=== PATIENT | male | born 1990 | race Asian ===

== ENCOUNTER 2023-07-12 18:56 | Inpatient (IN) | payer MEDICAID ==
[~2023-07-12] VITALS: Ht 167.6 cm; Wt 70.4 kg
[2023-07-12] MEDS ORDERED: CefTRIAXone 2gm/D5W 50ml BAG 50 ML IV ONE (20:05)
[2023-07-12] MEDS ORDERED: vancomycin/NS 1 GM ADD-VANTAGE 250 ML IV ONE ×2 (20:05→23:00)
[2023-07-12] MEDS ORDERED: TETanus/Pertussis (Acell)/Diphther VAC/PF (Tdap-Adult) 0.5ml syringe IMVAC ONE (20:05)
[2023-07-12] MEDS ORDERED: normal saline 1000ML IV soln IV ONE (20:05)
[2023-07-12 20:45] LABS: BASOPHILS % (AUTO) 0.3 % (0-1); EOSINOPHILS # (AUTO) 0.1 X10'3 (0-0.9); EOSINOPHILS % (AUTO) 0.8 % (0-6); HEMATOCRIT 37.9 % (42.0-52.0); HEMOGLOBIN 12.6 g/dl (14.0-17.9); LYMPHOCYTES # (AUTO) 1.4 X10'3 (1.1-4.8); LYMPHOCYTES % (AUTO) 14.3 % (21-51); MEAN CORPUSCULAR HEMOGLOBIN 29.3 PG (27.0-31.0); MEAN CORPUSCULAR HGB CONC 33.3 g/dL (33.0-36.5); MEAN CORPUSCULAR VOLUME 88.1 FL (78-98); MEAN PLATELET VOLUME 7.9 FL (7.4-10.4); MONOCYTES # (AUTO) 0.8 X10'3 (0-0.9); MONOCYTES % (AUTO) 8.6 % (2-12); NEUTROPHILS # (AUTO) 7.2 X10'3 (1.8-7.7); PLATELET COUNT 266 X10'3 (140-440); RED BLOOD COUNT 4.31 X10'6 (4.70-6.10); RED CELL DISTRIBUTION WIDTH 13.8 % (11.5-14.5); WHITE BLOOD COUNT 9.5 X10'3 (4.5-11.0)
[2023-07-12 21:00] LABS: ALANINE AMINOTRANSFERASE 28 U/L (12-78); ALBUMIN 3.1 G/DL (3.4-5.0); ALBUMIN/GLOBULIN RATIO 0.7 (1.1-1.5); ALKALINE PHOSPHATASE 91 IU/L (46-116); ANION GAP 7 (8-16); ASPARTATE AMINO TRANSFERASE 16 U/L (10-37); BILIRUBIN,TOTAL 0.2 MG/DL (0.1-1.0); BLOOD UREA NITROGEN 12 MG/DL (7-18); BUN/CREATININE RATIO 12.4 (10.0-20.0); CALCIUM 9.1 MG/DL (8.5-10.1); CHLORIDE 102 MMOL/L (99-107); CREATININE 0.97 MG/DL (0.60-1.10); GLUCOSE 132 MG/DL (70-104); POTASSIUM 3.4 MMOL/L (3.5-5.1); SODIUM 138 MMOL/L (135-145); TOTAL CARBON DIOXIDE 29.1 MMOL/L (24-32); TOTAL PROTEIN 7.6 G/DL (6.4-8.2); eCRCL 100 ML/MIN; eGFR 90 ML/MIN
[2023-07-12] MEDS ORDERED: temazepam 15mg capsule PO PRN (21:00)
[2023-07-12] MEDS ORDERED: acetaminophen 325mg tablet PO PRN ×2 (22:25)
[2023-07-12] MEDS ORDERED: magnesium 4gm in 100ml NS 100 ML IV PRN (22:25)
[2023-07-12] MEDS: normal saline 1000ml 1,000 ML IV SCH (22:25)
[2023-07-12] MEDS ORDERED: potassium Cl 40MEQ/1/2NS 520ml 520 ML IV PRN (22:25)
[2023-07-12] MEDS ORDERED: ondansetron/PF 4mg/2ml inj IV PRN (22:25)
[2023-07-12] MEDS ORDERED: potassium Cl 20 mEq SR tablet PO PRN ×2 (22:25)
[2023-07-12] MEDS ORDERED: magnesium Cl slow-release 64mg tablet PO PRN (22:25)
[2023-07-12] MEDS ORDERED: magnesium 2GM in 50ml NS 50 ML IV PRN (22:25)
[2023-07-12] MEDS ORDERED: HYDROcodone/acetaminophen 5mg/325mg tablet PO PRN (22:25)
[2023-07-12] MEDS ORDERED: morphine 2 MG/ML inj. syringe IV PRN (22:25)
[2023-07-12] MEDS ORDERED: fluconazole 150mg tablet PO ONE (22:30)
[2023-07-13] MEDS ORDERED: vancomycin/NS 1 GM ADD-VANTAGE 250 ML X 1 DOSE IV ONE (00:30)
[2023-07-13] MEDS: HYDROcodone/acetaminophen 10/325mg tab PO PRN ×3 (00:35→14:40)
[2023-07-13] MEDS ORDERED: heparin, porcine 5000 units/ml vial SQ SCH (08:00)
[2023-07-13 08:17] LABS: BASOPHILS % (AUTO) 0.2 % (0-1); EOSINOPHILS # (AUTO) 0.1 X10'3 (0-0.9); EOSINOPHILS % (AUTO) 1.1 % (0-6); HEMATOCRIT 34.9 % (42.0-52.0); HEMOGLOBIN 11.5 g/dl (14.0-17.9); LYMPHOCYTES # (AUTO) 1.2 X10'3 (1.1-4.8); MEAN CORPUSCULAR HEMOGLOBIN 29.4 PG (27.0-31.0); MEAN CORPUSCULAR VOLUME 89.1 FL (78-98); MEAN PLATELET VOLUME 7.8 FL (7.4-10.4); MONOCYTES # (AUTO) 0.7 X10'3 (0-0.9); MONOCYTES % (AUTO) 7.8 % (2-12); NEUTROPHILS # (AUTO) 6.6 X10'3 (1.8-7.7); NEUTROPHILS % (AUTO) 76.9 % (42-75); PLATELET COUNT 234 X10'3 (140-440); RED BLOOD COUNT 3.92 X10'6 (4.70-6.10); RED CELL DISTRIBUTION WIDTH 13.3 % (11.5-14.5); WHITE BLOOD COUNT 8.6 X10'3 (4.5-11.0)
[2023-07-13] MEDS: normal saline 1000ml 1,000 ML IV SCH ×3 (08:25→22:10)
[2023-07-13] MEDS: vancomycin/NS 1 GM ADD-VANTAGE 250 ML X 1 DOSE IV SCH ×2 (08:55→20:27)
[2023-07-13 09:12] LABS: ALANINE AMINOTRANSFERASE 47 U/L (12-78); ALBUMIN 2.4 G/DL (3.4-5.0); ALBUMIN/GLOBULIN RATIO 0.6 (1.1-1.5); ALKALINE PHOSPHATASE 77 IU/L (46-116); ANION GAP 6 (8-16); ASPARTATE AMINO TRANSFERASE 41 U/L (10-37); BILIRUBIN,TOTAL 0.2 MG/DL (0.1-1.0); BLOOD UREA NITROGEN 8 MG/DL (7-18); BUN/CREATININE RATIO 9.4 (10.0-20.0); CALCIUM 8.3 MG/DL (8.5-10.1); CHLORIDE 106 MMOL/L (99-107); CREATININE 0.85 MG/DL (0.60-1.10); GLUCOSE 98 MG/DL (70-104); POTASSIUM 3.9 MMOL/L (3.5-5.1); SODIUM 138 MMOL/L (135-145); TOTAL CARBON DIOXIDE 25.8 MMOL/L (24-32); TOTAL PROTEIN 6.2 G/DL (6.4-8.2); eCRCL 114 ML/MIN; eGFR > 90 ML/MIN
[2023-07-13] MEDS: morphine 2 MG/ML inj. syringe IV PRN (10:46)
[2023-07-13] MEDS: piperacillin/tazo 3.375gm/50ml 50 ML IV SCH ×2 (10:47→22:09)
[2023-07-13] MEDS ORDERED: LIDOcaine 1% (10mg/ml)w/preservative inj. 20ml MDV SQ ONE ×2 (14:25→14:55)
[2023-07-13 15:00] VITALS: BP 121/75; PULSE 80; RESP 14; TEMP 98.2; O2SAT 95
[2023-07-13] MEDS ORDERED: NO HOME MEDS (17:13)
[2023-07-13 19:20] VITALS: BP 127/78; PULSE 101; RESP 16; TEMP 102.8; O2SAT 97
[2023-07-13 21:00] VITALS: BP 113/75; PULSE 87; RESP 16; TEMP 99.7
[2023-07-13 23:00] VITALS: BP 115/70; PULSE 91; RESP 14; TEMP 97.8; O2SAT 97
[2023-07-14] MEDS: vancomycin/NS 1 GM ADD-VANTAGE 250 ML X 1 DOSE IV SCH ×4 (01:49→23:24)
[2023-07-14] MEDS: piperacillin/tazo 3.375gm/50ml 50 ML IV SCH ×3 (03:37→16:00)
[2023-07-14] MEDS: HYDROcodone/acetaminophen 10/325mg tab PO PRN ×4 (03:40→23:24)
[2023-07-14 06:00] VITALS: BP 109/62; PULSE 66; RESP 18; TEMP 98.2; O2SAT 96
[2023-07-14] MEDS ORDERED: VANCOMYCIN LEVEL IV ONE (07:30)
[2023-07-14 07:33] VITALS: RESP 16; O2SAT 97
[2023-07-14 07:55] LABS: BASOPHILS # (AUTO) 0.1 X10'3 (0-0.2); BASOPHILS % (AUTO) 0.8 % (0-1); EOSINOPHILS # (AUTO) 0.1 X10'3 (0-0.9); EOSINOPHILS % (AUTO) 1.6 % (0-6); HEMATOCRIT 35.9 % (42.0-52.0); HEMOGLOBIN 11.9 g/dl (14.0-17.9); LYMPHOCYTES # (AUTO) 1.4 X10'3 (1.1-4.8); LYMPHOCYTES % (AUTO) 21.6 % (21-51); MEAN CORPUSCULAR HEMOGLOBIN 29.3 PG (27.0-31.0); MEAN CORPUSCULAR VOLUME 88.7 FL (78-98); MEAN PLATELET VOLUME 7.9 FL (7.4-10.4); MONOCYTES # (AUTO) 0.7 X10'3 (0-0.9); MONOCYTES % (AUTO) 10.3 % (2-12); NEUTROPHILS # (AUTO) 4.3 X10'3 (1.8-7.7); NEUTROPHILS % (AUTO) 65.7 % (42-75); PLATELET COUNT 251 X10'3 (140-440); RED BLOOD COUNT 4.05 X10'6 (4.70-6.10); RED CELL DISTRIBUTION WIDTH 13.6 % (11.5-14.5); WHITE BLOOD COUNT 6.5 X10'3 (4.5-11.0)
[2023-07-14 08:04] LABS: ALANINE AMINOTRANSFERASE 60 U/L (12-78); ALBUMIN 2.3 G/DL (3.4-5.0); ALBUMIN/GLOBULIN RATIO 0.6 (1.1-1.5); ALKALINE PHOSPHATASE 79 IU/L (46-116); ANION GAP 3 (8-16); ASPARTATE AMINO TRANSFERASE 45 U/L (10-37); BILIRUBIN,TOTAL 0.3 MG/DL (0.1-1.0); BLOOD UREA NITROGEN 11 MG/DL (7-18); BUN/CREATININE RATIO 10.9 (10.0-20.0); CALCIUM 8.5 MG/DL (8.5-10.1); CHLORIDE 105 MMOL/L (99-107); CREATININE 1.01 MG/DL (0.60-1.10); GLUCOSE 123 MG/DL (70-104); POTASSIUM 3.7 MMOL/L (3.5-5.1); SODIUM 137 MMOL/L (135-145); TOTAL CARBON DIOXIDE 29.3 MMOL/L (24-32); TOTAL PROTEIN 6.3 G/DL (6.4-8.2); VANCOMYCIN,TROUGH 17.3 ug/mL (10.0-20.0); eCRCL 96 ML/MIN; eGFR 86 ML/MIN
[2023-07-14 10:00] VITALS: BP 113/66; PULSE 81; RESP 18; TEMP 98.4; O2SAT 95
[2023-07-14] MEDS: morphine 2 MG/ML inj. syringe IV PRN (11:49)
[2023-07-14] MEDS: normal saline 1000ml 1,000 ML IV SCH ×2 (14:25→15:22)
[2023-07-14 18:00] VITALS: BP 117/72; PULSE 82; RESP 16; TEMP 98.8; O2SAT 97
[2023-07-15 00:04] VITALS: BP 126/80; PULSE 78; RESP 18; TEMP 98.4; O2SAT 97
[2023-07-15] MEDS: piperacillin/tazo 3.375gm/50ml 50 ML IV SCH ×2 (00:55→08:17)
[2023-07-15 06:00] VITALS: BP 121/79; PULSE 62; RESP 16; TEMP 98; O2SAT 98
[2023-07-15 06:50] LABS: BASOPHILS % (AUTO) 0.5 % (0-1); EOSINOPHILS # (AUTO) 0.2 X10'3 (0-0.9); HEMATOCRIT 38.2 % (42.0-52.0); HEMOGLOBIN 12.5 g/dl (14.0-17.9); LYMPHOCYTES # (AUTO) 1.5 X10'3 (1.1-4.8); LYMPHOCYTES % (AUTO) 23.6 % (21-51); MEAN CORPUSCULAR HGB CONC 32.7 g/dL (33.0-36.5); MEAN CORPUSCULAR VOLUME 88.7 FL (78-98); MEAN PLATELET VOLUME 7.4 FL (7.4-10.4); MONOCYTES # (AUTO) 0.6 X10'3 (0-0.9); MONOCYTES % (AUTO) 10.3 % (2-12); NEUTROPHILS # (AUTO) 3.9 X10'3 (1.8-7.7); NEUTROPHILS % (AUTO) 62.6 % (42-75); PLATELET COUNT 288 X10'3 (140-440); RED BLOOD COUNT 4.31 X10'6 (4.70-6.10); RED CELL DISTRIBUTION WIDTH 13.5 % (11.5-14.5); WHITE BLOOD COUNT 6.2 X10'3 (4.5-11.0)
[2023-07-15 07:03] LABS: ALANINE AMINOTRANSFERASE 51 U/L (12-78); ALBUMIN 2.5 G/DL (3.4-5.0); ALBUMIN/GLOBULIN RATIO 0.6 (1.1-1.5); ALKALINE PHOSPHATASE 69 IU/L (46-116); ANION GAP 2 (8-16); ASPARTATE AMINO TRANSFERASE 26 U/L (10-37); BILIRUBIN,TOTAL 0.2 MG/DL (0.1-1.0); BLOOD UREA NITROGEN 14 MG/DL (7-18); CALCIUM 8.8 MG/DL (8.5-10.1); CHLORIDE 103 MMOL/L (99-107); CREATININE 1.17 MG/DL (0.60-1.10); GLUCOSE 95 MG/DL (70-104); POTASSIUM 4.3 MMOL/L (3.5-5.1); SODIUM 138 MMOL/L (135-145); TOTAL CARBON DIOXIDE 33.3 MMOL/L (24-32); TOTAL PROTEIN 6.7 G/DL (6.4-8.2); eCRCL 83 ML/MIN; eGFR 73 ML/MIN
[2023-07-15] MEDS: morphine 2 MG/ML inj. syringe IV PRN (09:24)
[2023-07-15 10:00] VITALS: BP 125/76; PULSE 81; RESP 16; TEMP 97.8; O2SAT 100
[2023-07-15] MEDS ORDERED: HYDR-3965 PO (11:33)
[2023-07-15] MEDS ORDERED: LEVO750T68 PO (12:13)
== END 2023-07-15 13:45 | disposition home or self-care (01) | DRG 316 ==
LOC: ER 18:57 → ED HOLD 22:30 → EDBEDREQSVC 07-13 09:21 → ORTHO 4S 07-13 11:47
PROVIDERS: ADMIT Internal Medicine; ATTEND Internal Medicine
PROC: 0JBJ0ZZ Excision of Right Hand Subcutaneous Tissue and Fascia, Open Approach (ICD-10-PCS; principal; 2023-07-13)
DX: M65.841 Other synovitis and tenosynovitis, right hand (principal); L02.511 Cutaneous abscess of right hand; L03.011 Cellulitis of right finger; Z72.0 Tobacco use
CPT/HCPCS: 36415; 73140; 80053; 80202; 83605; 84145; 85025; 87040; 87070; 87077; 87186; 90715; 96365; 99285; A6446; A6449; G0378; J0696; J1644; J2270; J2543; J3370; J7030

== ENCOUNTER 2023-10-21 18:48 | Emergency (ER) | payer MEDICAID ==
[~2023-10-21] VITALS: Ht 167.6 cm; Wt 79.0 kg
[~2023-10-21 18:48] MED LIST: NO HOME MEDS
[2023-10-21 19:56] LABS: BASOPHILS % (AUTO) 0.2 % (0-1); EOSINOPHILS # (AUTO) 0.1 X10'3 (0-0.9); EOSINOPHILS % (AUTO) 0.6 % (0-6); HEMOGLOBIN 13.3 g/dl (14.0-17.9); LYMPHOCYTES # (AUTO) 1.3 X10'3 (1.1-4.8); LYMPHOCYTES % (AUTO) 14.3 % (21-51); MEAN CORPUSCULAR HEMOGLOBIN 28.9 PG (27.0-31.0); MEAN CORPUSCULAR HGB CONC 33.1 g/dL (33.0-36.5); MEAN CORPUSCULAR VOLUME 87.3 FL (78-98); MEAN PLATELET VOLUME 8.3 FL (7.4-10.4); MONOCYTES # (AUTO) 0.9 X10'3 (0-0.9); MONOCYTES % (AUTO) 10.6 % (2-12); NEUTROPHILS # (AUTO) 6.6 X10'3 (1.8-7.7); NEUTROPHILS % (AUTO) 74.3 % (42-75); PLATELET COUNT 223 X10'3 (140-440); RED BLOOD COUNT 4.58 X10'6 (4.70-6.10); RED CELL DISTRIBUTION WIDTH 15.4 % (11.5-14.5); WHITE BLOOD COUNT 8.9 X10'3 (4.5-11.0)
[2023-10-21 20:05] LABS: ALBUMIN 4.6 G/DL (3.4-5.0); ANION GAP 13 (8-16); BLOOD UREA NITROGEN 25 MG/DL (7-18); BUN/CREATININE RATIO 22.5 (10.0-20.0); C-REACTIVE PROTEIN 1.66 MG/DL (0.0-0.5); CALCIUM 9.5 MG/DL (8.5-10.1); CHLORIDE 107 MMOL/L (99-107); CREATININE 1.11 MG/DL (0.60-1.10); GLUCOSE 88 MG/DL (70-104); POTASSIUM 3.9 MMOL/L (3.5-5.1); SODIUM 144 MMOL/L (135-145); eCRCL 87 ML/MIN; eGFR 77 ML/MIN
[2023-10-21] MEDS: levoFLOXACIN 250mg tablet PO ONE (20:30)
[2023-10-21] MEDS ORDERED: LEVO-65 PO (20:34)
[2023-10-21 20:39] VITALS: BP 128/72; PULSE 88; RESP 18; TEMP 98; O2SAT 98
== END 2023-10-21 20:41 | disposition home or self-care (01) ==
LOC: ER 18:49
DX: L03.113 Cellulitis of right upper limb (principal)
CPT/HCPCS: 36415; 73140; 80048; 85025; 86140; 99284

== ENCOUNTER 2024-08-10 23:54 | Emergency (ER) | payer MEDICAID ==
[~2024-08-10] VITALS: Ht 167.6 cm; Wt 71.3 kg
[2024-08-10 23:58] VITALS: TEMP 98.2
[2024-08-11 01:05] LABS: BASOPHILS # (AUTO) 0.1 X10'3 (0-0.2); BASOPHILS % (AUTO) 0.7 % (0-1); EOSINOPHILS # (AUTO) 0.1 X10'3 (0-0.9); HEMATOCRIT 39.5 % (42.0-52.0); HEMOGLOBIN 13.3 g/dl (14.0-17.9); LYMPHOCYTES # (AUTO) 1.2 X10'3 (1.1-4.8); LYMPHOCYTES % (AUTO) 15.6 % (21-51); MEAN CORPUSCULAR HEMOGLOBIN 29.5 PG (27.0-31.0); MEAN CORPUSCULAR HGB CONC 33.8 g/dL (33.0-36.5); MEAN CORPUSCULAR VOLUME 87.4 FL (78-98); MEAN PLATELET VOLUME 8.1 FL (7.4-10.4); MONOCYTES # (AUTO) 0.4 X10'3 (0-0.9); MONOCYTES % (AUTO) 5.3 % (2-12); NEUTROPHILS % (AUTO) 77.4 % (42-75); PLATELET COUNT 330 X10'3 (140-440); RED BLOOD COUNT 4.52 X10'6 (4.70-6.10); RED CELL DISTRIBUTION WIDTH 13.8 % (11.5-14.5); WHITE BLOOD COUNT 7.8 X10'3 (4.5-11.0)
[2024-08-11 01:14] LABS: ALBUMIN 3.6 G/DL (3.4-5.0); ANION GAP 7 (8-16); BILIRUBIN,TOTAL 0.3 MG/DL (0.1-1.0); BLOOD UREA NITROGEN 33 MG/DL (7-18); BUN/CREATININE RATIO 22.4 (10.0-20.0); CHLORIDE 104 MMOL/L (99-107); CREATININE 1.47 MG/DL (0.60-1.10); GLUCOSE 108 MG/DL (70-104); POTASSIUM 4.3 MMOL/L (3.5-5.1); SODIUM 138 MMOL/L (135-145); TOTAL CARBON DIOXIDE 27.2 MMOL/L (24-32); TOTAL PROTEIN 7.5 G/DL (6.4-8.2); eCRCL 65 ML/MIN; eGFR 56 ML/MIN
[2024-08-11 01:15] LABS: ALANINE AMINOTRANSFERASE 22 U/L (12-78); ALBUMIN/GLOBULIN RATIO 0.9 (1.1-1.5); ALKALINE PHOSPHATASE 67 IU/L (46-116); ASPARTATE AMINO TRANSFERASE 12 U/L (10-37)
[2024-08-11 01:23] LABS: PRO BRAIN NATRIURETIC PEPTIDE 60 PG/ML (0-125)
[2024-08-11] MEDS ORDERED: RABE20TA31 PO (03:46)
[2024-08-11 03:57] VITALS: BP 140/92; PULSE 88; RESP 18; O2SAT 95
== END 2024-08-11 03:54 | disposition home or self-care (01) ==
LOC: ER 23:55
DX: K21.9 Gastro-esophageal reflux disease without esophagitis (principal); R07.89 Other chest pain; F17.210 Nicotine dependence, cigarettes, uncomplicated; I25.10 Atherosclerotic heart disease of native coronary artery without angina pectoris
CPT/HCPCS: 36415; 71045; 80053; 83880; 84484; 85025; 93005; 99285

== ENCOUNTER 2024-10-08 09:23 | Emergency (ER) | payer MEDICAID ==
[~2024-10-08] VITALS: Ht 167.6 cm; Wt 74.0 kg
[~2024-10-08 09:23] MED LIST changes: +RABE20TA31 PO
[2024-10-08 09:40] VITALS: TEMP 97.9
[2024-10-08 10:38] LABS: BASOPHILS % (AUTO) 0.4 % (0-1); EOSINOPHILS % (AUTO) 0.5 % (0-6); HEMATOCRIT 42.5 % (42.0-52.0); LYMPHOCYTES # (AUTO) 1.1 X10'3 (1.1-4.8); LYMPHOCYTES % (AUTO) 23.7 % (21-51); MEAN CORPUSCULAR HEMOGLOBIN 28.9 PG (27.0-31.0); MEAN CORPUSCULAR HGB CONC 32.9 g/dL (33.0-36.5); MEAN PLATELET VOLUME 8.1 FL (7.4-10.4); MONOCYTES # (AUTO) 0.3 X10'3 (0-0.9); MONOCYTES % (AUTO) 7.1 % (2-12); NEUTROPHILS # (AUTO) 3.2 X10'3 (1.8-7.7); NEUTROPHILS % (AUTO) 68.3 % (42-75); PLATELET COUNT 238 X10'3 (140-440); RED BLOOD COUNT 4.83 X10'6 (4.70-6.10); RED CELL DISTRIBUTION WIDTH 14.7 % (11.5-14.5); WHITE BLOOD COUNT 4.6 X10'3 (4.5-11.0)
[2024-10-08 10:57] LABS: ALANINE AMINOTRANSFERASE 19 U/L (12-78); ALKALINE PHOSPHATASE 79 IU/L (46-116); ANION GAP 4 (8-16); ASPARTATE AMINO TRANSFERASE 17 U/L (10-37); BILIRUBIN,TOTAL 0.3 MG/DL (0.1-1.0); BLOOD UREA NITROGEN 15 MG/DL (7-18); BUN/CREATININE RATIO 13.6 (10.0-20.0); CALCIUM 9.1 MG/DL (8.5-10.1); CHLORIDE 108 MMOL/L (99-107); GLUCOSE 100 MG/DL (70-104); LIPASE 32 U/L (16-77); POTASSIUM 3.9 MMOL/L (3.5-5.1); SODIUM 144 MMOL/L (135-145); TOTAL CARBON DIOXIDE 31.9 MMOL/L (24-32); TOTAL PROTEIN 7.9 G/DL (6.4-8.2); eCRCL 87 ML/MIN; eGFR 78 ML/MIN
[2024-10-08 11:03] LABS: BILIRUBIN,URINE NEGATIVE (Neg); CLARITY,URINE CLEAR (Clear); COLOR,URINE YELLOW (Yellow); GLUCOSE, URINE NEGATIVE (Neg); KETONES,URINE NEGATIVE (Neg); LEUKOCYTE ESTERASE ,URINE NEGATIVE (Neg); NITRITES, URINE NEGATIVE (Neg); OCCULT BLOOD,URINE SMALL (Neg); PROTEIN,URINE TRACE mg/dl (Neg); UROBILINOGEN,URINE 0.2 E.U/dL (0.2-1.0)
[2024-10-08 11:07] LABS: UA COLLECTION TYPE NON-SPECIFIED
[2024-10-08 11:09] LABS: RBC,URINE 0-2 /HPF (0-2); WBC,URINE 0-4 /HPF (0-4)
[2024-10-08 11:10] LABS: BACTERIA,URINE NONE SEEN /HPF (Neg); MUCUS STRANDS FEW /LPF (Neg); SQUAMOUS EPITHELIAL CELL,UR FEW /LPF (FEW)
[2024-10-08 12:03] VITALS: BP 134/87; PULSE 72; RESP 16; O2SAT 100
== END 2024-10-08 12:04 | disposition home or self-care (01) ==
LOC: ER 09:23
DX: K92.2 Gastrointestinal hemorrhage, unspecified (principal); Z79.899 Other long term (current) drug therapy
CPT/HCPCS: 36415; 80053; 81001; 83690; 85025; 99283

== ENCOUNTER 2025-04-21 13:33 | Emergency (ER) | payer MEDICAID ==
[~2025-04-21] VITALS: Ht 167.6 cm; Wt 69.0 kg
[~2025-04-21 13:33] MED LIST changes: -RABE20TA31 PO; +RABE20TA32 PO
[2025-04-21 13:44] VITALS: BP 133/88; PULSE 71; RESP 16; TEMP 97.7; O2SAT 99
--- NOTE | 2025-04-21 14:10 | Physician Documentation ---
History of Present Illness ~ Chief Complaint: See Chief Complaint Stated Complaint: WOUNDS ON LEG Time Seen by MD: 14:07 OK to notify your PCP?: Yes Primary Medical Doctor: None Source: patient Mode of Arrival: POV Exam Limitations: no limitations HPI 35-YEAR-OLD MALE PRESENTS WITH BILATERAL LOWER EXTREMITY SORES AFTER FALLING IN A BLACK VERY [place] LAST WEEK THAT HAVE STARTED BLEEDING/OOZING FOR THE PAST WEEK. HE SAYS THAT THEY ARE BOTH ITCHY AND PAINFUL AND HE IS WORRIED ABOUT INFECTION THEY ARE RED AROUND THE SPOTS. HE ALSO REPORTS THAT HIS GIRLFRIEND IS CHEATING ON HIM AND HE WOULD LIKE TO GET STD TESTING. HAS BEEN HAVING SOME BURNING WITH URINATION AND STATES IT FEELS SIMILAR TO LAST TIME HE HAD CHLAMYDIA. Medication Reconciliation Allergies: Coded Allergies: No Known Allergies (Unverified , 04/21/25) Scheduled Doxycycline Monohydrate (Doxycycline Monohydrate), 1 CAP PO Q12H Rabeprazole Sodium (Rabeprazole Sodium), 1 TAB PO DAILY Miscellaneous Medications Home Med List (No Home Medications), (Reported) Past Medical History Past Medical History: No Pertinent History Past Surgical History: noncontributory Alcohol Use: None Lives In: Home Review of Systems All Other Systems at this time: Reviewed and Negative Physical Exam Vital Signs: RN Vital Signs have been reviewed: Yes, Temperature: 97.7, Source: Temporal, Heart Rate: 71, Respiratory Rate: 16, BP: 133/88, Pulse Oximetry: 99, Weight: 69.000 Oxygen Flow Rate: 0 Pulse Oximetry Reflects: adequate oxygenation Physical Exam General: Alert, no apparent distress. HEENT: PERRL, EOMI, no injection, moist mucous membranes. Neck: Full range of motion. Respiratory: Lungs clear, no respiratory distress. Chest: No accessory muscle use. Cardiovascular: Regular rate and rhythm, no murmurs. Gastrointestinal: Soft, nontender, nondistended. Bowels sounds present. Extremities: Normal range of motion, no deformity. Neurologic: Oriented x4. Psychiatric: Normal mood and affect. Skin: Normal color, warm and dry. He has multiple wounds to his bilateral extremities that have scabbed over, none currently draining there is some erythema around each spot and they are tender to the touch. Progress Results/Orders Reviewed/noted all lab results: Yes Results/Orders Orders - CADEN,MARY D PORTER BAGGAGE Urinalysis, Cult If Indicated (04/21/25 16:18) Chlam/Gc Amp Ur (04/21/25 16:18) Doxycycline 100mg Capsule (Vibramycin 10 (04/21/25 16:18) Ceftriaxone 500 Im W/Lidocaine (Rocephin (04/21/25 16:20) Vital Signs 04/21/25 13:44 Temp 97.7 Pulse 71 Resp 16 B/P (MAP) 133/88 Pulse Ox 99 O2 Flow Rate 0 Medical Decision Making Additional info obtained from: old records Findings 35-year-old male presents for bilateral lower extremity wounds after he fell into a [place] last week. He states that they have been crusted over and oozing but are tender to the touch and have some redness around the site. He is also requesting to have gonorrhea and chlamydia testing due to his slight burning with urination. I ordered urine sample to be sent to the lab for gonorrhea and chlamydia culture. I educated him this takes 3 days or so to come back and we will notify him if he is positive. For the bilateral wounds with cellulitis I will place him on doxycycline as this can cross cover for gonorrhea. I also ordered IM Rocephin to cover for gonorrhea. Vital signs have been stable in he is nontoxic appearing. Differential Dx:Considerations: Include: Candidiasis, Gangrene, Impetigo, Scabies Departure Disposition: 01 HOME / SELF CARE / HOMELESS Impression: Primary Impression: Contact with and (suspected) exposure to infections with a predominantly sexual mode of transmission Additional Impression: Cellulitis of lower extremity Condition: Stable Additional Instructions: We have sent her urine for culture which takes 3 days to grow. We will give you if phone call if it is positive for gonorrhea or chlamydia. [facility] with blood work. Take all antibiotics as prescribed. Follow up with your primary care provider within the next week and return back here for any new or worsening symptoms. Referrals: NO PRIMARY CARE PROVIDER (PCP) Prescriptions Doxycycline Monohydrate (Doxycycline Monohydrate) 100 Mg Capsule 1 CAP PO Q12H for 10 Days, #20 CAP Prov: MARY NEGRETE PORTER BAGGAGE 04/21/25 Education Educated: Patient Educated regarding: diagnosis, treatment, prognosis, need for follow up Additional Comment Medical Screen Exam THIS PATIENT RECIEVED A MEDICAL SCREENING EXAMINATION. AFTER REVIEWING THE INDIVIDUAL'S MEDICAL COMPLAINTS WITH PRESENTING SYMPTOMS AND PERFORMING AN APPROPRIATE PHYSICAL EXAMINATION, IT WAS DETERMINED THAT NO IMMEDIATE LIFE- THREATENING EMERGENCY MEDICAL CONDITION IS PRESENT. THIS INDIVIDUAL IS ALSO NOT A WOMEN HAVING CONTRACTIONS. Signature Scribe Signature: . Attestation: Scribed for Mary Negretep by Mary Grant NP . 04/21/25 16:29 Parts of this note were created using [employer] voice recognition software program. While efforts were made to correct any mistakes made by this voice recognition software program, nonsensical phrases may remain in this note. In addition, there may be errors and syntax, grammar, content and spelling. MARY NEGRETEP Apr 21, 2025 14:09
[2025-04-21] MEDS ORDERED: DOXY-347 PO (16:22)
[2025-04-21] MEDS: DOXYCYCLINE 100MG CAPSULE PO STA (16:42)
[2025-04-21] MEDS: CefTRIAXone 500MG IM Kit w/LIDOcaine IM ONE (16:43)
[2025-04-21 16:56] LABS: LEUKOCYTE ESTERASE ,URINE NEGATIVE (Neg); NITRITES, URINE NEGATIVE (Neg); OCCULT BLOOD,URINE TRACE-INTACT (Neg)
[2025-04-21 17:02] LABS: UA COLLECTION TYPE URINAL
[2025-04-21 17:04] LABS: MUCUS STRANDS NONE SEEN /LPF (Neg); SQUAMOUS EPITHELIAL CELL,UR FEW /LPF (FEW)
== END 2025-04-21 16:49 | disposition home or self-care (01) ==
LOC: ER 13:34
DX: L03.116 Cellulitis of left lower limb (principal); L03.115 Cellulitis of right lower limb; R30.9 Painful micturition, unspecified
CPT/HCPCS: 36415; 81001; 87491; 87591; 96372; 99283; J0696

== ENCOUNTER 2025-08-19 18:09 | Emergency (ER) | payer MEDICAID ==
[~2025-08-19] VITALS: Ht 167.6 cm; Wt 74.4 kg
[2025-08-19 18:11] VITALS: BP 154/104; PULSE 79; RESP 18; O2SAT 100
--- NOTE | 2025-08-19 18:24 | Physician Documentation ---
History of Present Illness ~ Chief Complaint: Hypertension Stated Complaint: BLOOD PRESSURE Time Seen by MD: 18:18 Primary Medical Doctor: None HPI This is a 35-year-old male who was dropped off by law enforcement after they attempted to book him to half-way though was rejected for booking for half-way due to a high blood pressure reading requiring medical clearance, law enforcement chose not the patient to half-way though drop him off the emergency department, on triage patient's blood pressure is not significantly elevated. Patient reports he has a history of migraines and is experiencing some headache symptoms though patient reports the headache is mild and is not particularly concerned about it as it is similar to his typical headache symptoms. Patient reports he was concerned because law enforcement told he had high blood pressure otherwise he would not like to be seen. Medication Reconciliation Allergies: Coded Allergies: No Known Allergies (Unverified , 04/21/25) Scheduled Rabeprazole Sodium (Rabeprazole Sodium), 1 TAB PO DAILY Miscellaneous Medications Home Med List (No Home Medications), (Reported) Past Medical History Past Medical History: No Pertinent History Past Surgical History: noncontributory Alcohol Use: None Lives In: Home Review of Systems ROS As stated above in the HPI, otherwise all systems are reviewed and negative. Physical Exam Vital Signs: Temperature: 97.9, Source: Temporal, Heart Rate: 79, Respiratory Rate: 18, BP: 154/104, Pulse Oximetry: 100, Weight: 74.400 Oxygen Flow Rate: 0 Physical Exam VITALS: Reviewed and as above. GENERAL: Alert, nontoxic appearing, no apparent distress. HEENT: PERRLA, no C-spine tenderness, no meningeal signs RESPIRATORY: No increased work of breathing, no respiratory distress, speaking in full clear sentences Progress Results/Orders Results/Orders Completed Orders - SURESH ALEXANDER Acetaminophen 325mg Tablet (Tylenol Tabl (08/19/25 18:20) Vital Signs 08/19/25 08/19/25 18:11 19:51 Temp 97.9 97.9 Pulse 79 Resp 18 B/P (MAP) 154/104 Pulse Ox 100 O2 Flow Rate 0 Medical Decision Making Additional information obtaine: N/A Findings This 35-year-old male was dropped off by law enforcement after the half-way found patient to have elevated blood pressure, patient reported having a mild headache similar to similar previous headache symptoms otherwise reported feeling well, patient's blood pressure was elevated though not to a level to constitute a hypertensive emergency or urgency, given lack of other symptoms I have low suspicion for hypertensive emergency and end-organ damage. It is reassuring patient reports headache is mild and similar to typical headache symptoms, with shared decision-making patient will be treated for headache with Tylenol and discharged to follow up with primary care provider and or [facility]. Patient is otherwise well-appearing and appropriate for outpatient follow up. Careful return to care precautions follow up instructions, and home care instructions which he verbalized understanding of. Differential Dx:Considerations: Include CHF, Include HTN, essential, Include HTN, accelerated, Include HTN, malignant, Include HTN, encephalopathy, Include medical noncompliance, Include medication withdrawal, Include other (Meningitis, migraine, CVA) Departure Time of Disposition: 18:23 Disposition: HOME / SELF CARE / HOMELESS Impression: Primary Impression: Headache Qualified Codes: R51.9 - Headache, unspecified Additional Impression: Elevated blood pressure reading Condition: Improved Discharge Instructions: Hypertension, Adult, [id number] Additional Instructions: Please continue to take Tylenol and or ibuprofen as needed for headache symptoms. Your blood pressure was somewhat elevated today but not to a level to constitute an emergency, I recommend you follow up with your primary care provider or the [facility] for further management of elevated blood pressure. Please follow up with your primary care provider in the next few days. Please return to the emergency department for any new or worsening concerning symptoms to include but not limited to severe headache or new weakness or numbness. Referrals: NO PRIMARY CARE PROVIDER (PCP) Education Educated: Patient Educated regarding: diagnosis, treatment, prognosis, need for follow up Signature Scribe Signature: No Scribe Attestation: The note accurately reflects work and decisions made by me.AMALIA Talley 08/19/25 20:57 SURESH ALEXANDER Aug 19, 2025 18:24
[2025-08-19 19:51] VITALS: TEMP 97.9
== END 2025-08-19 19:52 | disposition home or self-care (01) ==
LOC: ER 18:09
DX: R51.9 Headache, unspecified (principal); R03.0 Elevated blood-pressure reading, without diagnosis of hypertension; Z79.899 Other long term (current) drug therapy
CPT/HCPCS: 99282